=== PATIENT | female | born 1985 | race Hispanic/Latino ===

== ENCOUNTER → 2022-11-04 | Outpatient (CLI) | payer SELFPAY | END | disposition home or self-care (01) | LOC: ICE 14:16 | PROVIDERS: ATTEND Hospitalist | DX: Z20.822 Contact with and (suspected) exposure to COVID-19 (principal) | CPT/HCPCS: 87426 ==

== ENCOUNTER 2023-03-10 09:41 | Emergency (ER) | payer OTHER, SELFPAY ==
[~2023-03-10] VITALS: Ht 162.6 cm; Wt 65.8 kg
[2023-03-10 09:46] VITALS: BP 102/69
[2023-03-10] MEDS ORDERED: CELECOXIB 100 MG CAP PO SCH (10:30)
[2023-03-10] MEDS ORDERED: CELE100C97 PO (11:46)
[2023-03-10] MEDS ORDERED: LIDO1ADH82 TP (11:46)
== END 2023-03-10 12:08 | disposition home or self-care (01) ==
LOC: EDH 09:41
DX: S96.912A Strain of unspecified muscle and tendon at ankle and foot level, left foot, initial encounter (principal); Z90.710 Acquired absence of both cervix and uterus; X58.XXXA Exposure to other specified factors, initial encounter; Y93.89 Activity, other specified; Y92.89 Other specified places as the place of occurrence of the external cause; Y99.8 Other external cause status
CPT/HCPCS: 73610

== ENCOUNTER 2023-08-01 18:04 | Emergency (ER) | payer OTHER ==
[~2023-08-01] VITALS: Ht 162.6 cm; Wt 65.8 kg
[~2023-08-01 18:04] MED LIST: CELE-146 PO; LIDO1ADH82 TP
[2023-08-01 18:06] VITALS: BP 117/76; PULSE 84; RESP 16
== END 2023-08-01 22:42 | disposition home or self-care (01) ==
LOC: EDH 18:04
DX: Z00.00 Encounter for general adult medical examination without abnormal findings (principal); Z90.710 Acquired absence of both cervix and uterus